=== PATIENT | male | born 1975 | race Caucasian/White ===

== ENCOUNTER 2020-08-17 08:14 | Emergency (ER) | payer SELFPAY ==
[~2020-08-17] VITALS: Ht 172.7 cm; Wt 84.0 kg
[~2020-08-17 08:14] MED LIST: XANAX
[2020-08-17] MEDS ORDERED: METOPROLOL TARTRATE 25MG TABLET PO ONE (08:45)
[2020-08-17 08:50] LABS: BASOPHILS % 0.3 % (0.0-2.0); EOSINOPHILS % 3.6 % (0.0-5.0); HEMATOCRIT. 50.2 % (42.0-52.0); HEMOGLOBIN. 17.2 g/dL (14.0-18.0); LYMPHOCYTES % 29.4 % (20.0-50.0); MEAN CORPUSCULAR HEMOGLOBIN 29.9 pg (28.0-32.0); MEAN CORPUSCULAR VOLUME 87.3 fL (80.0-94.0); MEAN PLATELET VOLUME 8.7 fl (7.4-10.4); MONOCYTES % 6.3 % (2.0-8.0); NEUTROPHILS % 60.4 % (40.0-76.0); PLATELET 176 x1000/uL (130-400); RED BLOOD CELL COUNT 5.75 mill/uL (4.7-6.1); RED CELL DISTRIBUTION WIDTH 14.2 % (11.6-14.6)
[2020-08-17 09:00] LABS: CHLORIDE 111 mEq/L (98-107)
[2020-08-17] MEDS ORDERED: POTASSIUM CHLORIDE 10MEQ TABLET SR PO ONE (10:15)
[2020-08-17] MEDS ORDERED: SODIUM CHLORIDE 0.9% 1,000 ML IV ONE (10:15)
[2020-08-17 13:20] VITALS: BP 139/81
== END 2020-08-17 13:20 | disposition home or self-care (01) ==
LOC: ER 08:30
DX: R00.2 Palpitations (principal); I10 Essential (primary) hypertension
CPT/HCPCS: 36415; 71045; 80053; 83735; 83880; 84484; 85025; 93005; 99285; J7030

== ENCOUNTER 2020-10-17 01:40 | Emergency (ER) | payer BC ==
[~2020-10-17] VITALS: Ht 180.3 cm; Wt 95.0 kg
[2020-10-17 03:09] LABS: BASOPHILS % 0.2 % (0.0-2.0); HEMATOCRIT. 49.5 % (42.0-52.0); HEMOGLOBIN. 16.8 g/dL (14.0-18.0); LYMPHOCYTES % 27.4 % (20.0-50.0); MEAN CORPUSCULAR HEMOGLOBIN 29.9 pg (28.0-32.0); MEAN CORPUSCULAR VOLUME 88.1 fL (80.0-94.0); MEAN PLATELET VOLUME 9.3 fl (7.4-10.4); NEUTROPHILS % 61.4 % (40.0-76.0); PLATELET 181 x1000/uL (130-400); RED BLOOD CELL COUNT 5.62 mill/uL (4.7-6.1); RED CELL DISTRIBUTION WIDTH 14.2 % (11.6-14.6)
[2020-10-17 03:10] LABS: CLARITY URINE CLEAR (CLEAR); COLOR URINE YELLOW (YELLOW); KETONES URINE TRACE (NEGATIVE); LEUKOCYTE ESTERASE URINE NEGATIVE (NEGATIVE); NITRITE URINE NEGATIVE (NEGATIVE); OCCULT BLOOD URINE NEGATIVE (NEGATIVE); PROTEIN URINE NEGATIVE (NEGATIVE); SPECIFIC GRAVITY URINE 1.004 (1.005-1.030); UROBILINOGEN URINE 0.2 E.U./dL (0.2-1.0)
[2020-10-17] MEDS: ASPIRIN 81MG TABLET PO ONE (03:19)
[2020-10-17] MEDS: DILTIAZEM HCL 5MG/ML 5ML VIAL IV ONE (03:19)
[2020-10-17 03:20] LABS: *AMPHETAMINES SCREEN URINE NEGATIVE (NEGATIVE)
[2020-10-17 03:21] LABS: *BARBITURATES SCREEN URINE NEGATIVE (NEGATIVE); *BENZODIAZEPINES SCREEN URINE NEGATIVE (NEGATIVE); *COCAINE SCREEN URINE NEGATIVE (NEGATIVE); METHADONE URINE SCREEN NEGATIVE (NEGATIVE); OPIATES URINE SCREEN NEGATIVE (NEGATIVE); PARTIAL THROMBOPLASTIN TIME 29.3 sec (23.4-31.0); PHENCYCLIDINE URINE SCREEN NEGATIVE (NEGATIVE); PROTHROMBIN TIME 10.5 sec (9.6-11.0)
[2020-10-17 03:22] LABS: CANNABINOID URINE SCREEN NEGATIVE (NEGATIVE)
[2020-10-17 03:24] LABS: CHLORIDE 109 mEq/L (98-107)
[2020-10-17 03:28] LABS: ETHANOL BLOOD < 10 mg/dL
[2020-10-17 04:42] VITALS: BP 113/77
== END 2020-10-17 04:43 | disposition left against medical advice (07) ==
LOC: ER 01:49 → CANBEDREQ 09:14
DX: I48.91 Unspecified atrial fibrillation (principal); R07.89 Other chest pain; I10 Essential (primary) hypertension; Z98.890 Other specified postprocedural states
CPT/HCPCS: 36415; 71045; 80053; 80305; 80320; 81003; 83880; 84484; 85025; 85610; 85730; 93005; 96374; 99285; C9803; J3490; U0003; Z7610; G0480

== ENCOUNTER 2021-05-01 16:16 | Emergency (ER) | payer BC ==
[~2021-05-01] VITALS: Ht 180.3 cm; Wt 94.0 kg
[2021-05-01 16:29] VITALS: BP 143/96
== END 2021-05-01 17:31 | disposition left against medical advice (07) ==
LOC: ER 16:16
DX: Z53.21 Procedure and treatment not carried out due to patient leaving prior to being seen by health care provider (principal); I49.9 Cardiac arrhythmia, unspecified
CPT/HCPCS: 93005